=== PATIENT | female | born 1930 | race Two or more races ===

== ENCOUNTER 2017-03-21 14:51 | Inpatient (IN) | payer MEDICARE ==
[~2017-03-21] VITALS: Ht 157.5 cm; Wt 60.8 kg
[2017-03-21] MEDS ORDERED: OMEP20CA10 PO (15:19)
[2017-03-21] MEDS ORDERED: LEVO100T9 PO (15:19)
[2017-03-21] MEDS ORDERED: BISA10SU8 RC (15:19)
[2017-03-21] MEDS ORDERED: FAMO20TA8 PO (15:19)
[2017-03-21] MEDS ORDERED: ACET-868 PO (15:19)
[2017-03-21] MEDS ORDERED: ONDA4TAB5 PO (15:19)
[2017-03-21] MEDS ORDERED: POTA20TA83 PO (15:19)
[2017-03-21] MEDS ORDERED: ESCI10TA PO (15:19)
[2017-03-21] MEDS ORDERED: HYDR-552 PO (15:19)
[2017-03-21] MEDS ORDERED: CALC-108 PO (15:19)
[2017-03-21] MEDS ORDERED: MULT-659 PO (15:19)
[2017-03-21] MEDS ORDERED: NA P133E RC (15:19)
[2017-03-21] MEDS ORDERED: GABA-534 PO (15:19)
[2017-03-21] MEDS ORDERED: CHOL400T11 PO (15:19)
[2017-03-21] MEDS ORDERED: SODI1TAB3 PO (15:19)
[2017-03-21] MEDS ORDERED: ROPI0.5T PO (15:19)
[2017-03-21] MEDS ORDERED: DEME300T2 PO (15:19)
[2017-03-21] MEDS ORDERED: ZOLP5TAB2 PO (15:19)
[2017-03-21] MEDS ORDERED: ACID1TAB12 PO (15:19)
[2017-03-21] MEDS ORDERED: MAG30ORA PO (15:19)
[2017-03-21] MEDS ORDERED: IPRA3AMP IH (15:19)
[2017-03-21] MEDS ORDERED: MAGN400O6 PO (15:19)
[2017-03-21] MEDS ORDERED: NITR0.4T6 SL (15:19)
[2017-03-21] MEDS ORDERED: LEVA0.6320 IH (15:19)
[2017-03-21] MEDS ORDERED: ALBUTEROL FS 2.5 MG/3 ML VIAL.NEB ONE ×2 (15:24→16:44)
[2017-03-21] MEDS ORDERED: HYDROCODONE/APAP 5/325MG 1 EACH TABLET ONE (15:24)
[2017-03-21] MEDS ORDERED: IPRATROPIUM NEB FS 0.5 MG/2.5 ML AMPUL.NEB ONE ×2 (15:24→16:44)
[2017-03-21] MEDS ORDERED: IV SET PRIMARY 1 EA INFUS.SET MC ONE ×2 (15:25→18:07)
[2017-03-21] MEDS ORDERED: IV NS 0.9% 500 ML IV ONE (15:25)
[2017-03-21] MEDS ORDERED: ONDANSETRON HCL/PF 4 MG/2 ML VIAL ONE (15:25)
[2017-03-21] MEDS ORDERED: IV NS 0.9% 500 ML BAG IV ONE (15:30)
[2017-03-21] MEDS ORDERED: IPRATROPIUM NEB FS 0.5 MG/2.5 ML AMPUL.NEB NEB ONE ×2 (15:30→17:00)
[2017-03-21] MEDS ORDERED: ONDANSETRON HCL/PF 4 MG/2 ML VIAL IVP ONE (15:30)
[2017-03-21] MEDS ORDERED: HYDROCODONE/APAP 5/325MG 1 EACH TABLET PO ONE (15:30)
[2017-03-21] MEDS ORDERED: ALBUTEROL FS 2.5 MG/3 ML VIAL.NEB NEB ONE ×2 (15:30→17:00)
[2017-03-21 15:35] LABS: BASOPHILS # (AUTO) 0.1 /CMM (0.0-0.2); EOSINOPHILS % (AUTO) 0.2 % (0.0-6.0); HEMATOCRIT 36 % (33-45); HEMOGLOBIN 11.8 g/dL (11.5-14.8); LYMPHOCYTES # (AUTO) 0.7 /CMM (0.8-4.8); LYMPHOCYTES % (AUTO) 5.5 % (20.0-44.0); MEAN CORPUSCULAR HEMOGLOBIN 30 PG (26.0-33.0); MEAN CORPUSCULAR HGB CONC 33 g/dl (31.0-36.0); MEAN CORPUSCULAR VOLUME 91 fL (82-100); MONOCYTES # (AUTO) 0.5 /CMM (0.1-1.30); MONOCYTES % (AUTO) 3.7 % (2.0-12.0); NEUTROPHILS # (AUTO) 11.8 /CMM (1.8-8.9); NEUTROPHILS % (AUTO) 89.6 % (43.0-81.0); PLATELET COUNT (AUTO) 446 /CMM (150-450); RED BLOOD CELL COUNT(AUTO) 3.95 MIL/uL (4.0-5.2); WHITE BLOOD COUNT (AUTO) 13.1 K/uL (4.3-11.0)
[2017-03-21 15:42] LABS: CALCIUM, SERUM 8.1 mg/dL (8.5-10.1); CARBON DIOXIDE 26 mmol/L (21-32); CHLORIDE 94 mmol/L (98-107); CREATININE 0.5 mg/dL (0.6-1.3); GLUCOSE 140 mg/dL (74-106); POTASSIUM 5.1 mmol/L (3.5-5.1); SODIUM SERUM 122 mmol/L (136-145); UREA NITROGEN, BLOOD 8 mg/dL (7-18)
[2017-03-21 15:51] LABS: TROPONIN I < 0.017 ng/mL (0.00-0.056)
[2017-03-21 15:55] LABS: ALANINE AMINOTRANSFERASE 41 U/L (12-78); ALBUMIN 2.6 g/dL (3.4-5.0); ALKALINE PHOSPHATASE 291 U/L (46-116); ASPARTATE AMINOTRANSFERASE 42 U/L (15-37); B-TYPE NATRIURETIC PEPTIDE 731 PG/ML (0-125); BILIRUBIN,DIRECT 0.2 mg/dL (0.0-0.2); BILIRUBIN,TOTAL 0.7 mg/dL (0.2-1.0); TOTAL PROTEIN, SERUM 7.1 g/dL (6.4-8.2)
[2017-03-21] MEDS ORDERED: methylPREDNISolone SOD SUCC 125 MG/2ML VIAL ONE (16:40)
[2017-03-21] MEDS ORDERED: methylPREDNISolone SOD SUCC 125 MG/2ML VIAL IV ONE (17:00)
[2017-03-21] MEDS ORDERED: PIPERACILLIN /TAZOBACTAM 3.375 G in IV D5W 50 ML IV ONE (18:00)
[2017-03-21 19:50] VITALS: BP 135/82
[2017-03-21 20:00] VITALS: BP 135/82
[2017-03-21] MEDS ORDERED: BISACODYL SUPP (10 MG) 10 MG/SUPP.RECT SUPP.RECT RC PRN (21:30)
[2017-03-21] MEDS ORDERED: Z GUARD REMEDY 2 OZ OINT TP PRN (22:00)
[2017-03-21] MEDS ORDERED: ZOLPIDEM TARTRATE 5 MG TABLET PO SCH (22:00)
[2017-03-21] MEDS ORDERED: VANCOMYCIN 1 GM in IV D5W 250 ML IV ONE (22:00)
[2017-03-21] MEDS ORDERED: HYDROCODONE/APAP 10/325MG 1 EA TABLET PO PRN (22:00)
[2017-03-21] MEDS ORDERED: ZOLPIDEM TARTRATE 5 MG TABLET PO PRN (22:00)
[2017-03-21] MEDS ORDERED: GABAPENTIN 300 MG CAPSULE ONE (22:47)
[2017-03-21] MEDS ORDERED: ZOLPIDEM TARTRATE 5 MG TABLET ONE (22:47)
[2017-03-21] MEDS ORDERED: VANCOMYCIN 1 GM VIAL ONE (22:47)
[2017-03-21] MEDS ORDERED: ropiniROLE 0.5 MG TABLET ONE (22:48)
[2017-03-21] MEDS ORDERED: FAMOTIDINE (20 MG) 20 MG TABLET ONE (22:48)
[2017-03-21] MEDS ORDERED: IV D5W 250 ML IV ONE (22:48)
[2017-03-21] MEDS ORDERED: IV NS 0.9% 250 ML IV ONE (23:00)
[2017-03-21] MEDS ORDERED: SECONDARY IV SET 1 EA INFUS.SET MC ONE (23:00)
[2017-03-21] MEDS ORDERED: IV SET PRIMARY PUMP SET 1 EA INFUS.SET MC ONE (23:00)
[2017-03-21 23:02] LABS: ABG BASE EXCESS -3.7 mmol/L; ABG PCO2 50.2 mmHg (35.0-45.0); ABG PH 7.287 (7.350-7.450); ABG PO2 133.5 mmHg (75.0-100.0); SITE, ABG Right Radial; VENT MODE, BG SIMPLE MASK
[2017-03-21] MEDS: ropiniROLE 0.5 MG TABLET PO SCH (23:22)
[2017-03-21] MEDS: GABAPENTIN 300 MG CAPSULE PO SCH (23:22)
[2017-03-21] MEDS: FAMOTIDINE (20 MG) 20 MG TABLET PO SCH (23:22)
[2017-03-22] VITALS: BP 125/58
[2017-03-22 04:00] VITALS: BP 121/76
[2017-03-22 04:50] LABS: BASOPHILS % (AUTO) 0.3 % (0.0-2.0); HEMATOCRIT 34 % (33-45); HEMOGLOBIN 11.6 g/dL (11.5-14.8); LYMPHOCYTES % (AUTO) 11.8 % (20.0-44.0); MEAN CORPUSCULAR HEMOGLOBIN 31 PG (26.0-33.0); MEAN CORPUSCULAR HGB CONC 35 g/dl (31.0-36.0); MEAN CORPUSCULAR VOLUME 91 fL (82-100); MONOCYTES # (AUTO) 0.3 /CMM (0.1-1.30); MONOCYTES % (AUTO) 3.1 % (2.0-12.0); NEUTROPHILS # (AUTO) 7.3 /CMM (1.8-8.9); NEUTROPHILS % (AUTO) 84.8 % (43.0-81.0); PLATELET COUNT (AUTO) 390 /CMM (150-450); RDW COEFFICIENT OF VARIATION 15.4 (11.5-15.0); RED BLOOD CELL COUNT(AUTO) 3.73 MIL/uL (4.0-5.2); WHITE BLOOD COUNT (AUTO) 8.6 K/uL (4.3-11.0)
[2017-03-22] MEDS ORDERED: MEROPENEM 1 G in IV NS 0.9% 100 ML IV SCH (05:00)
[2017-03-22 05:08] LABS: ALANINE AMINOTRANSFERASE 40 U/L (12-78); ALBUMIN 2.3 g/dL (3.4-5.0); ALKALINE PHOSPHATASE 264 U/L (46-116); ASPARTATE AMINOTRANSFERASE 35 U/L (15-37); BILIRUBIN,TOTAL 0.6 mg/dL (0.2-1.0); CALCIUM, SERUM 7.8 mg/dL (8.5-10.1); CARBON DIOXIDE 27 mmol/L (21-32); CHLORIDE 94 mmol/L (98-107); CREATININE 0.6 mg/dL (0.6-1.3); GLUCOSE 132 mg/dL (74-106); MAGNESIUM 2.1 mg/dL (1.8-2.4); PHOSPHORUS 2.1 mg/dL (2.5-4.9); POTASSIUM 5.1 mmol/L (3.5-5.1); SODIUM SERUM 124 mmol/L (136-145); TOTAL PROTEIN, SERUM 6.8 g/dL (6.4-8.2); UREA NITROGEN, BLOOD 6 mg/dL (7-18)
[2017-03-22 05:16] LABS: CHOLESTEROL 149 mg/dL (<200); HDL CHOLESTEROL 79 mg/dL (40-60); LDL 56 mg/dL (0-99); THYROID STIMULATING HORMONE 1.546 uIU/mL (0.358-3.74); TRIGLYCERIDES 38 mg/dL (30-150)
[2017-03-22 05:32] LABS: IRON, SERUM 26 ug/dl (50-175); TOTAL IRON BINDING CAPACITY 295 ug/dl (250-450)
[2017-03-22] MEDS ORDERED: MEROPENEM 1 G VIAL IV ONE (05:51)
[2017-03-22] MEDS ORDERED: SECONDARY IV SET 1 EA INFUS.SET MC ONE (05:55)
[2017-03-22] MEDS ORDERED: IV NS 0.9% 100 ML IV ONE (05:55)
[2017-03-22] MEDS ORDERED: FEE PK DOSING 1 MIN EA MC ONE (07:38)
[2017-03-22 08:00] VITALS: BP 146/80
[2017-03-22] MEDS: ALBUTEROL FS 2.5 MG/0.5 ML VIAL.NEB NEB SCH ×4 (08:04→19:46)
[2017-03-22] MEDS: IPRATROPIUM NEB FS 0.5 MG/2.5 ML AMPUL.NEB NEB SCH ×4 (08:04→19:47)
[2017-03-22] MEDS: ESCITALOPRAM OXALATE (10 MG) 10 MG TABLET PO SCH (09:58)
[2017-03-22] MEDS: PANTOPRAZOLE 40 MG VIAL IV SCH (09:58)
[2017-03-22] MEDS: CHOLECALCIFEROL (VITAMIN D 3) 400 UNIT TABLET PO SCH (09:58)
[2017-03-22] MEDS: ACIDOPHILUS/BULGARICUS 1 EACH TAB.CHEW PO SCH (09:58)
[2017-03-22] MEDS: LEVOTHYROXINE SODIUM 100 MCG TABLET PO SCH (09:58)
[2017-03-22 10:28] LABS: ABG BASE EXCESS -1.6 mmol/L; ABG OXYGEN SATURATION 92.9 % (92.0-98.5); ABG PCO2 48.7 mmHg (35.0-45.0); ABG PH 7.325 (7.350-7.450); ABG PO2 64.7 mmHg (75.0-100.0); AaDO2 84.7 mmHg; MetHb 0.8 % (0.0-1.5); O2Hb 91.2 % (94.0-97.0); SITE, ABG Right Radial; VENT MODE, BG NASAL CANNULA
[2017-03-22 12:00] VITALS: BP 122/70
[2017-03-22] MEDS ORDERED: DEMECLOCYCLINE HCL 150 MG TABLET PO SCH (12:00)
[2017-03-22] MEDS: ACETAMINOPHEN 325 MG TABLET PO PRN ×2 (12:01→17:38)
[2017-03-22] MEDS ORDERED: NEUTRA PHOS 1 POWD.PACKET PO ONE (12:30)
[2017-03-22] MEDS: ONDANSETRON HCL/PF 4 MG/2 ML VIAL IVP PRN (12:40)
[2017-03-22] MEDS: FUROSEMIDE 40 MG/4 ML VIAL IV SCH ×2 (15:10→20:14)
[2017-03-22] MEDS: VANCOMYCIN 1 GM in IV D5W 250 ML IV SCH (15:39)
[2017-03-22 16:00] VITALS: BP 142/71
[2017-03-22] MEDS: MEROPENEM 1 G in IV NS 0.9% 100 ML IV SCH (17:37)
[2017-03-22 20:00] VITALS: BP 133/83
[2017-03-22] MEDS: ropiniROLE 0.5 MG TABLET PO SCH (21:26)
[2017-03-22] MEDS: FAMOTIDINE (20 MG) 20 MG TABLET PO SCH (21:26)
[2017-03-22] MEDS: GABAPENTIN 300 MG CAPSULE PO SCH (21:38)
[2017-03-22] MEDS ORDERED: ZOLPIDEM TARTRATE 5 MG TABLET PO PRN (22:00)
[2017-03-23] VITALS: BP 125/73
[2017-03-23 04:00] VITALS: BP 120/66
[2017-03-23] MEDS ORDERED: IV NS 0.9% 250 ML IV ONE (05:26)
[2017-03-23] MEDS: MEROPENEM 1 G in IV NS 0.9% 100 ML IV SCH ×2 (05:32→18:52)
[2017-03-23 07:19] LABS: BASOPHILS # (AUTO) 0.1 /CMM (0.0-0.2); BASOPHILS % (AUTO) 0.6 % (0.0-2.0); EOSINOPHILS % (AUTO) 0.2 % (0.0-6.0); HEMATOCRIT 34 % (33-45); HEMOGLOBIN 11.5 g/dL (11.5-14.8); LYMPHOCYTES # (AUTO) 1.4 /CMM (0.8-4.8); LYMPHOCYTES % (AUTO) 9.8 % (20.0-44.0); MEAN CORPUSCULAR HEMOGLOBIN 31 PG (26.0-33.0); MEAN CORPUSCULAR HGB CONC 34 g/dl (31.0-36.0); MEAN CORPUSCULAR VOLUME 91 fL (82-100); MONOCYTES % (AUTO) 7.2 % (2.0-12.0); NEUTROPHILS # (AUTO) 11.5 /CMM (1.8-8.9); NEUTROPHILS % (AUTO) 82.2 % (43.0-81.0); PLATELET COUNT (AUTO) 388 /CMM (150-450); RDW COEFFICIENT OF VARIATION 16.1 (11.5-15.0); RED BLOOD CELL COUNT(AUTO) 3.75 MIL/uL (4.0-5.2)
[2017-03-23 07:34] LABS: CALCIUM, SERUM 7.9 mg/dL (8.5-10.1); CARBON DIOXIDE 32 mmol/L (21-32); CHLORIDE 91 mmol/L (98-107); CREATININE 0.6 mg/dL (0.6-1.3); GLUCOSE 107 mg/dL (74-106); MAGNESIUM 1.9 mg/dL (1.8-2.4); PHOSPHORUS 2.2 mg/dL (2.5-4.9); POTASSIUM 4.2 mmol/L (3.5-5.1); SODIUM SERUM 128 mmol/L (136-145); UREA NITROGEN, BLOOD 13 mg/dL (7-18)
[2017-03-23] MEDS: IPRATROPIUM NEB FS 0.5 MG/2.5 ML AMPUL.NEB NEB SCH ×4 (07:55→19:33)
[2017-03-23] MEDS: ALBUTEROL FS 2.5 MG/0.5 ML VIAL.NEB NEB SCH ×4 (08:03→19:33)
[2017-03-23 08:15] VITALS: BP 143/78
[2017-03-23] MEDS: LEVOTHYROXINE SODIUM 100 MCG TABLET PO SCH (08:42)
[2017-03-23] MEDS: CHOLECALCIFEROL (VITAMIN D 3) 400 UNIT TABLET PO SCH (08:42)
[2017-03-23] MEDS: PANTOPRAZOLE 40 MG VIAL IV SCH (08:42)
[2017-03-23] MEDS: ACIDOPHILUS/BULGARICUS 1 EACH TAB.CHEW PO SCH (08:42)
[2017-03-23] MEDS: ESCITALOPRAM OXALATE (10 MG) 10 MG TABLET PO SCH (08:42)
[2017-03-23] MEDS: HYDROCODONE/APAP 5/325MG 1 EACH TABLET PO PRN (10:14)
[2017-03-23] MEDS: VANCOMYCIN 1 GM in IV D5W 250 ML IV SCH (10:22)
[2017-03-23] MEDS ORDERED: IV D5/ 0.9% NACL 1,000 ML IV ONE (13:00)
[2017-03-23] MEDS ORDERED: IV SET PRIMARY PUMP SET 1 EA INFUS.SET MC ONE (13:12)
[2017-03-23] MEDS: methylPREDNISolone SOD SUCC 125 MG/2ML VIAL IV SCH ×2 (13:27→21:55)
[2017-03-23] MEDS ORDERED: SECONDARY IV SET 1 EA INFUS.SET MC ONE ×2 (15:08→17:36)
[2017-03-23] MEDS: POTASSIUM PHOSPHATE MM 5 MMOL in IV D5W 100 ML IV SCH ×2 (15:22→17:38)
[2017-03-23 16:00] VITALS: BP 134/79
[2017-03-23 20:00] VITALS: BP 139/73
[2017-03-23] MEDS: ropiniROLE 0.5 MG TABLET PO SCH (22:12)
[2017-03-23] MEDS: FAMOTIDINE (20 MG) 20 MG TABLET PO SCH (22:12)
[2017-03-23] MEDS: GABAPENTIN 300 MG CAPSULE PO SCH (22:24)
[2017-03-24] VITALS: BP 144/72
[2017-03-24] MEDS: VANCOMYCIN 1 GM in IV D5W 250 ML IV SCH ×2 (03:59→15:00)
[2017-03-24 04:00] VITALS: BP 133/69
[2017-03-24] MEDS: MEROPENEM 1 G in IV NS 0.9% 100 ML IV SCH ×2 (05:14→16:44)
[2017-03-24] MEDS: methylPREDNISolone SOD SUCC 125 MG/2ML VIAL IV SCH ×3 (05:15→20:51)
[2017-03-24 07:47] LABS: BASOPHILS % (AUTO) 0.2 % (0.0-2.0); HEMATOCRIT 36 % (33-45); HEMOGLOBIN 12.1 g/dL (11.5-14.8); LYMPHOCYTES # (AUTO) 0.7 /CMM (0.8-4.8); LYMPHOCYTES % (AUTO) 11.5 % (20.0-44.0); MEAN CORPUSCULAR HEMOGLOBIN 31 PG (26.0-33.0); MEAN CORPUSCULAR HGB CONC 34 g/dl (31.0-36.0); MEAN CORPUSCULAR VOLUME 91 fL (82-100); MONOCYTES # (AUTO) 0.2 /CMM (0.1-1.30); MONOCYTES % (AUTO) 3.7 % (2.0-12.0); NEUTROPHILS # (AUTO) 5.1 /CMM (1.8-8.9); NEUTROPHILS % (AUTO) 84.6 % (43.0-81.0); PLATELET COUNT (AUTO) 377 /CMM (150-450); RDW COEFFICIENT OF VARIATION 15.7 (11.5-15.0); RED BLOOD CELL COUNT(AUTO) 3.92 MIL/uL (4.0-5.2)
[2017-03-24 08:00] VITALS: BP 138/64
[2017-03-24] MEDS: PANTOPRAZOLE 40 MG VIAL IV SCH (08:11)
[2017-03-24] MEDS: ACIDOPHILUS/BULGARICUS 1 EACH TAB.CHEW PO SCH (08:12)
[2017-03-24] MEDS: LEVOTHYROXINE SODIUM 100 MCG TABLET PO SCH (08:12)
[2017-03-24] MEDS: ESCITALOPRAM OXALATE (10 MG) 10 MG TABLET PO SCH (08:12)
[2017-03-24] MEDS: CHOLECALCIFEROL (VITAMIN D 3) 400 UNIT TABLET PO SCH (08:12)
[2017-03-24 08:17] LABS: CALCIUM, SERUM 7.7 mg/dL (8.5-10.1); CARBON DIOXIDE 32 mmol/L (21-32); CHLORIDE 92 mmol/L (98-107); CREATININE 0.5 mg/dL (0.6-1.3); GLUCOSE 158 mg/dL (74-106); MAGNESIUM 2.1 mg/dL (1.8-2.4); PHOSPHORUS 1.7 mg/dL (2.5-4.9); POTASSIUM 4.2 mmol/L (3.5-5.1); SODIUM SERUM 130 mmol/L (136-145); UREA NITROGEN, BLOOD 9 mg/dL (7-18)
[2017-03-24] MEDS: IPRATROPIUM NEB FS 0.5 MG/2.5 ML AMPUL.NEB NEB SCH ×4 (08:20→19:48)
[2017-03-24] MEDS: ALBUTEROL FS 2.5 MG/0.5 ML VIAL.NEB NEB SCH ×4 (08:20→19:48)
[2017-03-24 12:00] VITALS: BP 144/76
[2017-03-24] MEDS: IV NS 0.9% 1,000 ML IV PRN (12:46)
[2017-03-24] MEDS: HYDROCODONE/APAP 5/325MG 1 EACH TABLET PO PRN (13:21)
[2017-03-24 16:00] VITALS: BP 132/61
[2017-03-24] MEDS ORDERED: Sodium Phosphate 15 MMOL in IV D5W 250 ML IV ONE (16:30)
[2017-03-24 20:00] VITALS: BP 148/81
[2017-03-24] MEDS: ropiniROLE 0.5 MG TABLET PO SCH (22:00)
[2017-03-24] MEDS: GABAPENTIN 300 MG CAPSULE PO SCH (22:00)
[2017-03-24] MEDS: FAMOTIDINE (20 MG) 20 MG TABLET PO SCH (22:00)
[2017-03-25] VITALS: BP_SYST 158; BP_SYST 165; BP_DIAS 86
[2017-03-25] MEDS: HYDROCODONE/APAP 5/325MG 1 EACH TABLET PO PRN ×2 (02:43→16:47)
[2017-03-25] MEDS: VANCOMYCIN 1 GM in IV D5W 250 ML IV SCH ×2 (02:47→14:09)
[2017-03-25 04:00] VITALS: BP 158/86
[2017-03-25] MEDS: methylPREDNISolone SOD SUCC 125 MG/2ML VIAL IV SCH ×4 (05:32→22:40)
[2017-03-25] MEDS ORDERED: SECONDARY IV SET 1 EA INFUS.SET MC ONE ×2 (05:32→14:35)
[2017-03-25] MEDS: MEROPENEM 1 G in IV NS 0.9% 100 ML IV SCH ×2 (05:32→17:51)
[2017-03-25 07:08] LABS: BASOPHILS % (AUTO) 0.1 % (0.0-2.0); EOSINOPHILS % (AUTO) 0.1 % (0.0-6.0); HEMATOCRIT 35 % (33-45); HEMOGLOBIN 11.8 g/dL (11.5-14.8); LYMPHOCYTES % (AUTO) 7.8 % (20.0-44.0); MEAN CORPUSCULAR HEMOGLOBIN 31 PG (26.0-33.0); MEAN CORPUSCULAR HGB CONC 34 g/dl (31.0-36.0); MEAN CORPUSCULAR VOLUME 91 fL (82-100); MONOCYTES # (AUTO) 0.8 /CMM (0.1-1.30); MONOCYTES % (AUTO) 6.6 % (2.0-12.0); NEUTROPHILS # (AUTO) 10.5 /CMM (1.8-8.9); NEUTROPHILS % (AUTO) 85.4 % (43.0-81.0); PLATELET COUNT (AUTO) 393 /CMM (150-450); RDW COEFFICIENT OF VARIATION 15.7 (11.5-15.0); RED BLOOD CELL COUNT(AUTO) 3.83 MIL/uL (4.0-5.2); WHITE BLOOD COUNT (AUTO) 12.3 K/uL (4.3-11.0)
[2017-03-25] MEDS: ALBUTEROL FS 2.5 MG/0.5 ML VIAL.NEB NEB SCH ×4 (07:23→19:05)
[2017-03-25] MEDS: IPRATROPIUM NEB FS 0.5 MG/2.5 ML AMPUL.NEB NEB SCH ×4 (07:23→19:05)
[2017-03-25 07:26] LABS: CALCIUM, SERUM 7.6 mg/dL (8.5-10.1); CARBON DIOXIDE 35 mmol/L (21-32); CHLORIDE 95 mmol/L (98-107); CREATININE 0.6 mg/dL (0.6-1.3); GLUCOSE 132 mg/dL (74-106); MAGNESIUM 2.2 mg/dL (1.8-2.4); PHOSPHORUS 1.9 mg/dL (2.5-4.9); SODIUM SERUM 131 mmol/L (136-145); UREA NITROGEN, BLOOD 10 mg/dL (7-18)
[2017-03-25 08:00] VITALS: BP_SYST 140; BP_SYST 157; BP_DIAS 84
[2017-03-25] MEDS: ESCITALOPRAM OXALATE (10 MG) 10 MG TABLET PO SCH (08:34)
[2017-03-25] MEDS: LEVOTHYROXINE SODIUM 100 MCG TABLET PO SCH (08:34)
[2017-03-25] MEDS: ACIDOPHILUS/BULGARICUS 1 EACH TAB.CHEW PO SCH (08:34)
[2017-03-25] MEDS: CHOLECALCIFEROL (VITAMIN D 3) 400 UNIT TABLET PO SCH (08:34)
[2017-03-25] MEDS: FAMOTIDINE (20 MG) 20 MG TABLET PO SCH (08:35)
[2017-03-25] MEDS: PANTOPRAZOLE 40 MG VIAL IV SCH (10:56)
[2017-03-25 12:00] VITALS: BP_SYST 140; BP_SYST 147; BP_DIAS 72; BP_DIAS 81
[2017-03-25] MEDS ORDERED: BUMETANIDE INJ 0.25 MG/ML VIAL IV ONE (13:00)
[2017-03-25] MEDS: Potassium Phosphate meq 11 MEQ in IV D5W 100 ML IV SCH ×2 (15:29→20:00)
[2017-03-25 16:00] VITALS: BP_SYST 123; BP_SYST 130; BP_DIAS 64; BP_DIAS 79
[2017-03-25 20:00] VITALS: BP 165/91
[2017-03-25] MEDS: IV NS 0.9% 1,000 ML IV PRN (20:00)
[2017-03-25] MEDS: GABAPENTIN 300 MG CAPSULE PO SCH (22:38)
[2017-03-25] MEDS: ropiniROLE 0.5 MG TABLET PO SCH (22:38)
[2017-03-26] VITALS (9 sets, daily range): BP systolic 22–172; BP diastolic 62–90
[2017-03-26] MEDS: VANCOMYCIN 1 GM in IV D5W 250 ML IV SCH ×2 (03:52→15:05)
[2017-03-26] MEDS ORDERED: SECONDARY IV SET 1 EA INFUS.SET MC ONE ×2 (03:52→14:56)
[2017-03-26] MEDS: methylPREDNISolone SOD SUCC 125 MG/2ML VIAL IV SCH (04:01)
[2017-03-26] MEDS: MEROPENEM 1 G in IV NS 0.9% 100 ML IV SCH ×2 (04:04→16:11)
[2017-03-26 06:29] LABS: BASOPHILS % (AUTO) 0.1 % (0.0-2.0); HEMATOCRIT 36 % (33-45); HEMOGLOBIN 12.1 g/dL (11.5-14.8); LYMPHOCYTES # (AUTO) 0.7 /CMM (0.8-4.8); LYMPHOCYTES % (AUTO) 6.3 % (20.0-44.0); MEAN CORPUSCULAR HEMOGLOBIN 31 PG (26.0-33.0); MEAN CORPUSCULAR HGB CONC 34 g/dl (31.0-36.0); MEAN CORPUSCULAR VOLUME 92 fL (82-100); MONOCYTES # (AUTO) 0.4 /CMM (0.1-1.30); MONOCYTES % (AUTO) 3.8 % (2.0-12.0); NEUTROPHILS # (AUTO) 9.3 /CMM (1.8-8.9); NEUTROPHILS % (AUTO) 89.8 % (43.0-81.0); PLATELET COUNT (AUTO) 321 /CMM (150-450); RDW COEFFICIENT OF VARIATION 15.3 (11.5-15.0); WHITE BLOOD COUNT (AUTO) 10.3 K/uL (4.3-11.0)
[2017-03-26 07:06] LABS: CALCIUM, SERUM 7.5 mg/dL (8.5-10.1); CARBON DIOXIDE 37 mmol/L (21-32); CHLORIDE 92 mmol/L (98-107); CREATININE 0.5 mg/dL (0.6-1.3); GLUCOSE 175 mg/dL (74-106); PHOSPHORUS 2.1 mg/dL (2.5-4.9); SODIUM SERUM 131 mmol/L (136-145); UREA NITROGEN, BLOOD 9 mg/dL (7-18)
[2017-03-26 07:09] LABS: POTASSIUM 5.6 mmol/L (3.5-5.1)
[2017-03-26] MEDS: ALBUTEROL FS 2.5 MG/0.5 ML VIAL.NEB NEB SCH ×4 (07:21→19:16)
[2017-03-26] MEDS: IPRATROPIUM NEB FS 0.5 MG/2.5 ML AMPUL.NEB NEB SCH ×4 (07:21→19:16)
[2017-03-26] MEDS: LEVOTHYROXINE SODIUM 100 MCG TABLET PO SCH (09:01)
[2017-03-26] MEDS: PANTOPRAZOLE 40 MG VIAL IV SCH (09:01)
[2017-03-26] MEDS: ACIDOPHILUS/BULGARICUS 1 EACH TAB.CHEW PO SCH (09:02)
[2017-03-26] MEDS: CHOLECALCIFEROL (VITAMIN D 3) 400 UNIT TABLET PO SCH (09:02)
[2017-03-26] MEDS: ESCITALOPRAM OXALATE (10 MG) 10 MG TABLET PO SCH (09:02)
[2017-03-26] MEDS: HYDROCODONE/APAP 5/325MG 1 EACH TABLET PO PRN ×2 (10:10→21:34)
[2017-03-26] MEDS: predniSONE 20 MG TABLET PO SCH (12:56)
[2017-03-26] MEDS ORDERED: methylPREDNISolone SOD SUCC 125 MG/2ML VIAL IV SCH (13:00)
[2017-03-26] MEDS ORDERED: K PHOS NEUTRAL 250 MG TABLET PO ONE (13:30)
[2017-03-26] MEDS ORDERED: Sodium Phosphate 15 MMOL in IV D5W 250 ML IV ONE (14:30)
[2017-03-26] MEDS ORDERED: SODIUM POLYSTYRENE SULFONATE 15 G/60 ML BOTTLE PO ONE (16:00)
[2017-03-26] MEDS: ONDANSETRON HCL/PF 4 MG/2 ML VIAL IVP PRN (19:43)
[2017-03-26] MEDS ORDERED: ADENOSINE 6 MG/2 ML VIAL ONE (21:02)
[2017-03-26] MEDS ORDERED: ADENOSINE 6 MG/2 ML VIAL IVP ONE (21:30)
[2017-03-26] MEDS: ropiniROLE 0.5 MG TABLET PO SCH (21:33)
[2017-03-26] MEDS: FAMOTIDINE (20 MG) 20 MG TABLET PO SCH (21:34)
[2017-03-26] MEDS: GABAPENTIN 300 MG CAPSULE PO SCH (21:34)
[2017-03-26 22:11] LABS: *MYCOPLASMA PNEUMONIAE IgG <100 U/mL (0-99); *MYCOPLASMA PNEUMONIAE IgM <770 U/mL (0-769)
[2017-03-26] MEDS: IV NS 0.9% 1,000 ML IV PRN (23:33)
[2017-03-27] VITALS (9 sets, daily range): BP systolic 120–159; BP diastolic 62–90
[2017-03-27] MEDS: VANCOMYCIN 1 GM in IV D5W 250 ML IV SCH ×2 (04:01→17:23)
[2017-03-27] MEDS: MEROPENEM 1 G in IV NS 0.9% 100 ML IV SCH ×2 (05:50→17:21)
[2017-03-27 06:56] LABS: CALCIUM, SERUM 7.3 mg/dL (8.5-10.1); CARBON DIOXIDE 39 mmol/L (21-32); CHLORIDE 97 mmol/L (98-107); CREATININE 0.7 mg/dL (0.6-1.3); GLUCOSE 114 mg/dL (74-106); SODIUM SERUM 138 mmol/L (136-145); UREA NITROGEN, BLOOD 12 mg/dL (7-18)
[2017-03-27 07:16] LABS: BASOPHILS # (AUTO) 0.1 /CMM (0.0-0.2); BASOPHILS % (AUTO) 0.6 % (0.0-2.0); HEMATOCRIT 36 % (33-45); HEMOGLOBIN 11.7 g/dL (11.5-14.8); LYMPHOCYTES # (AUTO) 1.1 /CMM (0.8-4.8); LYMPHOCYTES % (AUTO) 5.3 % (20.0-44.0); MEAN CORPUSCULAR HEMOGLOBIN 30 PG (26.0-33.0); MEAN CORPUSCULAR HGB CONC 33 g/dl (31.0-36.0); MEAN CORPUSCULAR VOLUME 92 fL (82-100); MONOCYTES # (AUTO) 0.4 /CMM (0.1-1.30); MONOCYTES % (AUTO) 1.8 % (2.0-12.0); NEUTROPHILS # (AUTO) 18.5 /CMM (1.8-8.9); NEUTROPHILS % (AUTO) 92.3 % (43.0-81.0); PLATELET COUNT (AUTO) 338 /CMM (150-450); RDW COEFFICIENT OF VARIATION 15.9 (11.5-15.0); RED BLOOD CELL COUNT(AUTO) 3.87 MIL/uL (4.0-5.2)
[2017-03-27] MEDS: IPRATROPIUM NEB FS 0.5 MG/2.5 ML AMPUL.NEB NEB SCH ×4 (07:23→19:46)
[2017-03-27] MEDS: ALBUTEROL FS 2.5 MG/0.5 ML VIAL.NEB NEB SCH ×4 (07:23→19:46)
[2017-03-27 08:36] LABS: POTASSIUM 2.8 mmol/L (3.5-5.1)
[2017-03-27] MEDS: CHOLECALCIFEROL (VITAMIN D 3) 400 UNIT TABLET PO SCH (09:29)
[2017-03-27] MEDS: PANTOPRAZOLE 40 MG VIAL IV SCH (09:29)
[2017-03-27] MEDS: predniSONE 20 MG TABLET PO SCH (09:29)
[2017-03-27] MEDS: ACIDOPHILUS/BULGARICUS 1 EACH TAB.CHEW PO SCH (09:29)
[2017-03-27] MEDS: LEVOTHYROXINE SODIUM 100 MCG TABLET PO SCH (09:29)
[2017-03-27] MEDS: ESCITALOPRAM OXALATE (10 MG) 10 MG TABLET PO SCH (09:29)
[2017-03-27 09:32] LABS: SITE, ABG Left Radial; VENT MODE, BG ROOM AIR
[2017-03-27 09:48] LABS: ABG BASE EXCESS 8.7 mmol/L; ABG OXYGEN SATURATION 77.2 % (92.0-98.5); ABG PCO2 47.9 mmHg (35.0-45.0); ABG PH 7.465 (7.350-7.450); ABG PO2 40.4 mmHg (75.0-100.0); COHb 0.8 % (0.5-1.5); MetHb 0.5 % (0.0-1.5); O2Hb 76.2 % (94.0-97.0)
[2017-03-27 09:54] LABS: LYMPHOCYTES % (MANUAL) 5 % (16-48); MONOCYTES % (MANUAL) 2 % (0-11.0); NEUTROPHILS % (MANUAL) 93 (42-76)
[2017-03-27] MEDS ORDERED: SECONDARY IV SET 1 EA INFUS.SET MC ONE (10:29)
[2017-03-27] MEDS: POTASSIUM CL. PREMIX PERIPHER. 50 ML IV SCH ×6 (10:35→19:55)
[2017-03-27] MEDS: DILTIAZEM HCL 30 MG TABLET PO SCH ×2 (14:15→17:21)
[2017-03-27] MEDS ORDERED: IV SET PRIMARY PUMP SET 1 EA INFUS.SET MC ONE (17:19)
[2017-03-27] MEDS: FAMOTIDINE (20 MG) 20 MG TABLET PO SCH (21:57)
[2017-03-27] MEDS: ropiniROLE 0.5 MG TABLET PO SCH (21:57)
[2017-03-27] MEDS: GABAPENTIN 300 MG CAPSULE PO SCH (21:57)
[2017-03-28] VITALS (7 sets, daily range): BP systolic 121–150; BP diastolic 54–86
[2017-03-28] MEDS: DILTIAZEM HCL 30 MG TABLET PO SCH ×4 (00:03→17:42)
[2017-03-28] MEDS: VANCOMYCIN 1 GM in IV D5W 250 ML IV SCH (03:39)
[2017-03-28] MEDS: IV NS 0.9% 1,000 ML IV PRN (03:39)
[2017-03-28] MEDS ORDERED: SECONDARY IV SET 1 EA INFUS.SET MC ONE (04:19)
[2017-03-28] MEDS: MEROPENEM 1 G in IV NS 0.9% 100 ML IV SCH (04:24)
[2017-03-28 06:23] LABS: BASOPHILS # (AUTO) 0.1 /CMM (0.0-0.2); BASOPHILS % (AUTO) 0.3 % (0.0-2.0); EOSINOPHILS % (AUTO) 0.1 % (0.0-6.0); HEMATOCRIT 36 % (33-45); LYMPHOCYTES # (AUTO) 1.1 /CMM (0.8-4.8); LYMPHOCYTES % (AUTO) 5.8 % (20.0-44.0); MEAN CORPUSCULAR HEMOGLOBIN 30 PG (26.0-33.0); MEAN CORPUSCULAR HGB CONC 33 g/dl (31.0-36.0); MEAN CORPUSCULAR VOLUME 92 fL (82-100); MONOCYTES # (AUTO) 0.6 /CMM (0.1-1.30); MONOCYTES % (AUTO) 3.2 % (2.0-12.0); NEUTROPHILS # (AUTO) 16.8 /CMM (1.8-8.9); NEUTROPHILS % (AUTO) 90.6 % (43.0-81.0); PLATELET COUNT (AUTO) 291 /CMM (150-450); RDW COEFFICIENT OF VARIATION 16.2 (11.5-15.0); RED BLOOD CELL COUNT(AUTO) 3.95 MIL/uL (4.0-5.2); WHITE BLOOD COUNT (AUTO) 18.6 K/uL (4.3-11.0)
[2017-03-28 06:42] LABS: CALCIUM, SERUM 7.3 mg/dL (8.5-10.1); CARBON DIOXIDE 38 mmol/L (21-32); CHLORIDE 97 mmol/L (98-107); CREATININE 0.6 mg/dL (0.6-1.3); GLUCOSE 129 mg/dL (74-106); POTASSIUM 3.1 mmol/L (3.5-5.1); SODIUM SERUM 137 mmol/L (136-145); UREA NITROGEN, BLOOD 8 mg/dL (7-18)
[2017-03-28] MEDS: ALBUTEROL FS 2.5 MG/0.5 ML VIAL.NEB NEB SCH ×4 (07:57→19:49)
[2017-03-28] MEDS: IPRATROPIUM NEB FS 0.5 MG/2.5 ML AMPUL.NEB NEB SCH ×4 (07:57→19:49)
[2017-03-28 08:09] LABS: CHLAMYDIA AB, IgG <0.91 ratio (0.00-0.90)
[2017-03-28] MEDS: PANTOPRAZOLE 40 MG VIAL IV SCH (08:44)
[2017-03-28] MEDS: LEVOTHYROXINE SODIUM 100 MCG TABLET PO SCH (08:45)
[2017-03-28] MEDS: CHOLECALCIFEROL (VITAMIN D 3) 400 UNIT TABLET PO SCH (08:45)
[2017-03-28] MEDS: predniSONE 20 MG TABLET PO SCH (08:45)
[2017-03-28] MEDS: ACIDOPHILUS/BULGARICUS 1 EACH TAB.CHEW PO SCH (08:45)
[2017-03-28] MEDS: ESCITALOPRAM OXALATE (10 MG) 10 MG TABLET PO SCH (08:45)
[2017-03-28] MEDS ORDERED: PRED20TA PO (10:03)
[2017-03-28] MEDS ORDERED: DILT30TA14 PO (10:03)
[2017-03-28] MEDS ORDERED: LEVO500T15 PO (10:04)
[2017-03-28] MEDS: LEVOFLOXACIN (500MG) 500 MG TABLET PO SCH (10:14)
[2017-03-28] MEDS ORDERED: POTASSIUM CHLORIDE 20 MEQ POWDER PACKET NG SCH (11:00)
[2017-03-28] MEDS ORDERED: POTASSIUM CHLORIDE 20 MEQ TAB.PRT.SR PO ONE (11:30)
[2017-03-28] MEDS: ACETAMINOPHEN 325 MG TABLET PO PRN (20:08)
[2017-03-28] MEDS: FAMOTIDINE (20 MG) 20 MG TABLET PO SCH (21:27)
[2017-03-28] MEDS: ropiniROLE 0.5 MG TABLET PO SCH (21:27)
[2017-03-29] VITALS: BP 148/75
[2017-03-29] MEDS: DILTIAZEM HCL 30 MG TABLET PO SCH ×2 (00:41→05:20)
[2017-03-29 04:00] VITALS: BP 154/84
[2017-03-29] MEDS: IPRATROPIUM NEB FS 0.5 MG/2.5 ML AMPUL.NEB NEB SCH ×3 (07:38→14:02)
[2017-03-29] MEDS: ALBUTEROL FS 2.5 MG/0.5 ML VIAL.NEB NEB SCH ×3 (07:38→14:02)
[2017-03-29 08:00] VITALS: BP 152/79
[2017-03-29] MEDS: LEVOTHYROXINE SODIUM 100 MCG TABLET PO SCH (08:22)
[2017-03-29] MEDS: PANTOPRAZOLE 40 MG VIAL IV SCH (08:22)
[2017-03-29] MEDS: ACIDOPHILUS/BULGARICUS 1 EACH TAB.CHEW PO SCH (08:22)
[2017-03-29] MEDS: ESCITALOPRAM OXALATE (10 MG) 10 MG TABLET PO SCH (08:22)
[2017-03-29] MEDS: CHOLECALCIFEROL (VITAMIN D 3) 400 UNIT TABLET PO SCH (08:22)
[2017-03-29] MEDS: predniSONE 20 MG TABLET PO SCH (08:22)
[2017-03-29] MEDS: LEVOFLOXACIN (500MG) 500 MG TABLET PO SCH (09:36)
[2017-03-29] MEDS ORDERED: NYSTATIN (PYXIS) 500,000 UNIT/5 ML ORAL.SUSP PO SCH (10:30)
[2017-03-29 12:00] VITALS: BP 166/86
[2017-03-29] MEDS ORDERED: DILTIAZEM HCL CD 240 MG PO SCH (12:00)
[2017-03-29 12:18] VITALS: BP 166/86
== END 2017-03-29 14:45 | DRG 196 ==
LOC: ER 14:55 → MEDSG1 19:21 → TELE-TD 20:01 → TELE1 03-23 09:02 → MEDSG1 03-29 13:50
PROVIDERS: ADMIT Nurse Practitioner Acute Care; ATTEND Nurse Practitioner Acute Care
PROC: 05H533Z Insertion of Infusion Device into Right Subclavian Vein, Percutaneous Approach (ICD-10-PCS; principal; 2017-03-25)
DX: J84.116 Cryptogenic organizing pneumonia (principal); J96.01 Acute respiratory failure with hypoxia; E87.1 Hypo-osmolality and hyponatremia; J98.11 Atelectasis; I47.1 Supraventricular tachycardia; D64.9 Anemia, unspecified; K21.9 Gastro-esophageal reflux disease without esophagitis; K59.00 Constipation, unspecified; K74.60 Unspecified cirrhosis of liver; Z87.01 Personal history of pneumonia (recurrent); M06.9 Rheumatoid arthritis, unspecified; E03.9 Hypothyroidism, unspecified; R33.9 Retention of urine, unspecified; E87.6 Hypokalemia; M81.0 Age-related osteoporosis without current pathological fracture
CPT/HCPCS: 36415; 36569; 36600; 71010-TC; 71250-TC; 80048-TC; 80053-TC; 80061-TC; 80076-TC; 80202-TC; 82803-TC; 83540-TC; 83605-TC; 83735-TC; 83880; 84100-TC; 84132-TC; 84443-TC; 84484-TC; 85025-TC; 85652-TC; 86431-TC; 86631; 86632; 86738; 87040-TC; 87081-TC; 92611-TC; 93307-TC; 94799-TC; 97001-TC; 97116-TC; 97530-TC; A4606; A9563; C9113; J0153; J1940; J2185; J2405; J2543; J2930; J3370; J3480; J3490; J7030; J7040; J7042; J7050; J7060; Z7610